=== PATIENT | male | born 1960 | race Caucasian/White ===

== ENCOUNTER → 2017-12-15 | Outpatient (CLI) | payer BC ==
--- NOTE | 2017-12-15 22:39 | MR ---
EXAMINATION TYPE: MR lumbar spine wo con DATE OF EXAM: 12/15/2017 COMPARISON: NONE HISTORY: Lumbosacral radiculitis per order. Right hip pain for 15 years per patient. TECHNIQUE: Multiplanar, multisequence imaging of the lumbar spine is performed without IV contrast. FINDINGS: Sagittal images of the lumbar spine show vertebral body heights and alignment to appear sat isfactory. Multilevel disc desiccation is present. There is mild to moderate disc space narrowing L2- L3 and L4-L5 levels. Posterior disc herniations are seen at these levels as well as L3-L4 level effac ing the anterior thecal sac on sagittal images. The conus medullaris is normal in position and signal ending at mid L1 level. There are heterogeneous endplate changes with mild multilevel anterior spurr ing moderate anterior spurring at T11-T12 level is noted. Axial images show the T12-L1 and L1-L2 levels to appear within normal limits. Axial images at L2-L3 level show a large right paracentral disc extrusion component extending superio rly seen best sagittal image 9 roughly 1.4 cm above superior aspect of disc space. This is effacing t he anterolateral thecal sac and lateral recess and likely central right L2 nerve best on axial image 20 and sagittal image 9. There is moderate broad disc bulge also present effacing anterior thecal sac and causing mild to moderate bilateral anterior inferior neural foraminal narrowing. Axial images at L3-L4 level mild to moderate broad disc bulge mildly effaces the anterior thecal sac and mild facet degenerative changes bilaterally. There is [id number] bilateral anterior inferio r neural foraminal narrowing. Axial images at L4-L5 level shows broad-based posterior disc protrusion and [id number] facet de generative changes bilaterally. There is mild effacement anterior thecal sac. There is moderate to se ignacio left greater than right neural foraminal narrowing with encroachment along inferior aspect both L4 nerve roots respectively on sagittal images 12 and 3. Axial images at L5-S1 levels show [id number] facet degenerative changes bilaterally. Spinal can al is preserved. Bilateral neural foramina are patent. No suspicious retroperitoneal findings are seen. IMPRESSION: Multilevel degenerative changes lumbar spine as detailed above. Attention to L2-L3 level where most prominent disc herniation is effacing the anterolateral thecal sac and lateral recess as w ell as suspected right L2 and probable L3 nerves.
--- NOTE | 2017-12-15 22:42 | MR ---
EXAMINATION TYPE: MR hip RT wo con DATE OF EXAM: 12/15/2017 COMPARISON: NONE HISTORY: Right Hip Pain x 15 years Standard multiplanar, multisequence MRI departmental protocol Multiplanar, multisequence images of the pelvis focusing on the right hip were acquired. FINDINGS: Hip joints show symmetric mild/moderate axial joint space loss. Femoral head shapes are camille ntained bilaterally. No suspicious edema is seen in either hip or visualized pelvis. There are symmet anselmo small hip joint effusions. No linear T1 signal to suggest avascular necrosis is identified in eit her femoral head. No suspicious fluid signal seen at level of greater or lesser trochanters bilaterally. Groin adenopat hy is present. No suspicious fat or bowel-containing groin hernias is present bilaterally. There is some degenerative change superior labrum, irregularity and increased signal is suggestive of tear. Muscle bulk in the bilateral phthisis symmetrically and felt within normal limits. Visualized bladder is unremarkable. There is no suspicious bowel dilatation. There is no concerning p elvic fluid collection. Prostate is normal in size. IMPRESSION: Mild to moderate degenerative changes of both hips. Probable right-sided labral tear noted.
== END | disposition home or self-care (01) ==
LOC: RADMRIMAIN 19:14
PROVIDERS: ATTEND Family Medicine
DX: M51.16 Intervertebral disc disorders with radiculopathy, lumbar region (principal); M47.27 Other spondylosis with radiculopathy, lumbosacral region; R93.7 Abnormal findings on diagnostic imaging of other parts of musculoskeletal system; M25.551 Pain in right hip
CPT/HCPCS: 72148

== ENCOUNTER 2020-08-02 16:53 | Emergency (ER) | payer BC ==
[2020-08-02 17:01] VITALS: BP 150/87; PULSE 92; RESP 20; TEMP 98.6
[2020-08-02] MEDS ORDERED: IBUPROFEN 600 MG TAB PO STA (17:16)
[2020-08-02] MEDS ORDERED: DIPH,PERTUS(ACELL)TETVAC-LF 0.5 ML VIAL IM ONE (17:41)
[2020-08-02 17:47] LABS: Appearance,Urine Clear (Clear); Bilirubin,Urine Negative (Negative); Blood,Urine Negative (Negative); Color,Urine Yellow; Glucose,Urine (UA) Negative (Negative); Ketones,Urine Trace (Negative); Leukocyte Esterase,Urine Negative (Negative); Nitrite,Urine Negative (Negative); Protein,Urine Trace (Negative); Specific Gravity,Urine 1.029 (1.001-1.035)
--- NOTE | 2020-08-02 17:54 | XR ---
EXAMINATION TYPE: XR ribs LT w pa chest xray DATE OF EXAM: 08/02/2020 COMPARISON: NONE HISTORY: Pain. Fall. TECHNIQUE: 5 views FINDINGS: Heart is normal. Lungs are clear of infiltrate. There is no pleural effusion or pneumothora x. There are fractures of the anterior left 11th rib in the posterior lateral left 10th rib. There is no displacement. There are no hilar masses. Costophrenic angles are clear. IMPRESSION: Acute nondisplaced left-sided rib fractures.
[2020-08-02] MEDS ORDERED: LIDOCAINE 5% PATCH TOPICAL STA (17:56)
--- NOTE | 2020-08-02 17:58 | ED ---
Fall HPI - General Chief Complaint: Fall Stated Complaint: Fall Time Seen by Provider: 08/02/20 17:03 Source: patient Mode of arrival: ambulatory - History of Present Illness Initial Comments: 60-year-old male patient presents to the emergency department today for evaluation after experiencing a fall at home. Patient states he was about 3 rungs up a ladder when the ladder fell and he landed on top of it on his left ribs. Patient states he has been having some discomfort to the left posterior ribs since. Especially when he sits back and remains on a chair. He denies any increased pain with breathing. Denies any shortness of breath or hemoptysis. He states he did hit his head causing an abrasion as well. He denies any loss of consciousness. Denies any headache, neck pain, or spinal pain. Denies radiation of pain down his arms or his legs. Denies taking any medication for symptom relief. Patient denies any chest pain, shortness of breath, dizziness, weakness, abdominal pain, nausea, vomiting, or difficulties with bowel movements or urination. - Related Data Home Medications Medication Instructions Recorded Confirmed Aspirin 81 mg PO DAILY 06/12/14 03/04/16 Levothyroxine Sodium [Synthroid] 50 mcg PO DAILY 06/12/14 03/05/16 Losartan [Cozaar] 50 mg PO DAILY 06/12/14 03/05/16 Multivitamin [Men's Multi-Vitamin] 1 each PO DAILY 06/12/14 03/05/16 Potassium (Unknown Dose) 1 tab PO DAILY 06/12/14 03/05/16 Vitamina-(Dose Unknown) 1 cap PO DAILY 03/04/16 03/05/16 Previous Rx's Medication Instructions Recorded Ibuprofen [Motrin] 600 mg PO Q8HR PRN #30 tab 08/02/20 Lidocaine 5% Patch [Lidoderm] 1 patch TOPICAL DAILY #30 patch 08/02/20 Allergies Allergy/AdvReac Type Severity Reaction Status Date / Time Penicillins Allergy Rash/Hives Verified 08/02/20 17:02 Review of Systems ROS Statement: Those systems with pertinent positive or pertinent negative responses have been documented in the HPI. ROS Other: All systems not noted in ROS Statement are negative. Past Medical History Past Medical History: Hypertension, Skin Disorder, Thyroid Disorder Additional Past Medical History / Comment(s): . VITILIGO. History of Any Multi-Drug Resistant Organisms: None Reported Past Surgical History: Orthopedic Surgery Additional Past Surgical History / Comment(s): ORIF RT ANKLE, LEG. BILAT CATARACT REMOVED, Past Anesthesia/Blood Transfusion Reactions: No Reported Reaction Past Psychological History: No Psychological Hx Reported Smoking Status: Never smoker Past Alcohol Use History: Occasional Past Drug Use History: None Reported - Past Family History Father Sister(s) Family Medical History: Cancer General Exam Limitations: no limitations General appearance: alert, in no apparent distress, other (Physical well- developed, well-nourished adult male patient in no acute distress. Vital signs upon presentation are temperature 98.6F, pulse 92, respirations 20, blood pressure 150/87, pulse ox 99% on room air.) Head exam: Present: other (There is superficial abrasion noted to the top of the head, no active bleeding. No bony step-off or deformity noted to palpation.) Eye exam: Present: normal appearance, PERRL, EOMI. Absent: scleral icterus, conjunctival injection, periorbital swelling ENT exam: Present: normal exam, normal oropharynx, mucous membranes moist Neck exam: Present: normal inspection, full ROM, other (Nontender, no step-off, no deformity to firm midline palpation of the posterior cervical spine. Full range of motion without pain or limitation.). Absent: tenderness, meningismus, lymphadenopathy Respiratory exam: Present: normal lung sounds bilaterally. Absent: respiratory distress, wheezes, rales, rhonchi, stridor Cardiovascular Exam: Present: regular rate, normal rhythm, normal heart sounds. Absent: systolic murmur, diastolic murmur, rubs, gallop, clicks Back exam: Present: other (There is superficial abrasion and erythema noted over the left flank and left posterior lower rib region. There is tenderness noted over this area as well.). Absent: normal inspection, vertebral tenderness (Nontender, no step-off, no deformity to firm midline palpation of the thoracic and lumbar vertebrae. Full range of motion without pain or limitation.) Neurological exam: Present: alert, oriented X3, CN II-XII intact Psychiatric exam: Present: normal affect, normal mood Skin exam: Present: warm, dry, intact, normal color. Absent: rash Course Vital Signs 08/02/20 16:57 Temperature 98.6 F Pulse Rate 92 Respiratory 20 Rate Blood Pressure 150/87 O2 Sat by Pulse 99 Oximetry Medical Decision Making - Medical Decision Making 60-year-old male patient presents to the emergency department today for evaluation of left rib pain after experiencing a fall from a ladder. Patient does report striking his head but denies any loss of consciousness, current headache, visual changes, or dizziness. No nausea or vomiting. There is left posterior rib tenderness. X-rays of the rib and chest were obtained and showed a 10th and 11th rib fracture. Urinalysis was negative for signs of blood. Patient was given Lidoderm patch, anti-inflammatory pain medication. He is also given incentive spirometer with instructions on use to prevent pneumonia. He is instructed to follow-up with his primary care physician for recheck in 1-2 days. We did discuss signs or symptoms of worsening head injury. Return parameters were discussed in detail. He verbalizes understanding and agrees with this plan. - Lab Data Lab Results 08/02/20 Range/Units 17:40 Urine Color Yellow Urine Appearance Clear (Clear) Urine pH 5.0 (5.0-8.0) Ur Specific Gary 1.029 (1.001-1.035) Urine Protein Trace H (Negative) Urine Glucose (UA) Negative (Negative) Urine Ketones Trace H (Negative) Urine Blood Negative (Negative) Urine Nitrite Negative (Negative) Urine Bilirubin Negative (Negative) Urine Urobilinogen 2.0 (<2.0) mg/dL Ur Leukocyte Esterase Negative (Negative) - Radiology Data Radiology results: report reviewed, image reviewed 5 views of the left ribs and chest are obtained. Report was reviewed in its entirety. Impression by Dr. Able shows acute nondisplaced left-sided rib fractures over the lateral 10th and 11th rib. Disposition Clinical Impression: Left rib fracture Disposition: HOME SELF-CARE Condition: Good Instructions (If sedation given, give patient instructions): Rib Fracture (ED) Additional Instructions: Apply ice to the left ribs. Take medications as directed. Follow up with the primary care physician for recheck in 1-2 days. Return to the emergency department for any new, worsening, or concerning symptoms. Prescriptions: Lidocaine 5% Patch [Lidoderm] 1 patch TOPICAL DAILY #30 patch Ibuprofen [Motrin] 600 mg PO Q8HR PRN #30 tab PRN Reason: Pain Is patient prescribed a controlled substance at d/c from ED?: No Referrals: Micheal Yusuf, [Primary Care Provider] - 1-2 days Time of Disposition: 18:28
== END 2020-08-02 18:47 | disposition home or self-care (01) ==
LOC: EC 16:53
DX: S22.32XA Fracture of one rib, left side, initial encounter for closed fracture (principal); S00.91XA Abrasion of unspecified part of head, initial encounter; Z23 Encounter for immunization; E07.9 Disorder of thyroid, unspecified; I10 Essential (primary) hypertension; Z79.890 Hormone replacement therapy; Z79.899 Other long term (current) drug therapy; Z88.0 Allergy status to penicillin; Z98.42 Cataract extraction status, left eye; Z98.41 Cataract extraction status, right eye; W11.XXXA Fall on and from ladder, initial encounter; Y93.89 Activity, other specified; Y92.009 Unspecified place in unspecified non-institutional (private) residence as the place of occurrence of the external cause
CPT/HCPCS: 81003; 90471; 90715; 99284

== ENCOUNTER 2020-08-08 12:05 | Observation (INO) | payer BC ==
[2020-08-08] MEDS ORDERED: MORPHINE SULFATE 4 MG/ML SYRINGE IM STA (12:32)
[2020-08-08] MEDS ORDERED: DIAZEPAM 5 MG/ML 2 ML INJ IM ONE (12:32)
--- NOTE | 2020-08-08 12:33 | ED ---
Back Pain HPI - General Source: patient, RN notes reviewed, old records reviewed Limitations: no limitations <Carol Yoder - Last Filed: 08/08/20 15:51> <Martha Low - Last Filed: 08/14/20 00:35> - General Chief Complaint: Back Pain/Injury Stated Complaint: Revisit - Rib Pain sent by pcp Time Seen by Provider: 08/08/20 12:20 - History of Present Illness Initial Comments: 60-year-old male presents emergency department today for evaluation with complaints of left-sided rib pain. Patient reports that he fell on Wednesday was seen at that time diagnosed with rib fractures on 07 28. She reports that he fell on top of the ladder after standing on 3 steps and landed on the ribs. Patient reports he followed up with his PCP who prescribed him muscle relaxers and Tylenol codeine and continues to have significant worsening pain.. Patient reports that his pain was not managed with these medications at home last night. He reports that his back seems to spasm up. He denies any change in urination or hematuria. (Carol Yoder) - Related Data Home Medications Medication Instructions Recorded Confirmed Losartan [Cozaar] 50 mg PO DAILY 06/12/14 08/08/20 Levothyroxine Sodium [Synthroid] 75 mcg PO DAILY 08/08/20 08/08/20 Previous Rx's Medication Instructions Recorded Cyclobenzaprine [Flexeril] 10 mg PO TID PRN #30 tab 08/09/20 Naproxen [Naprosyn] 250 mg PO TID #30 tab 08/09/20 Allergies Allergy/AdvReac Type Severity Reaction Status Date / Time Penicillins Allergy Rash/Hives Verified 08/08/20 17:41 Review of Systems ROS Other: All systems not noted in ROS Statement are negative. <Carol Ydoer - Last Filed: 08/08/20 15:51> ROS Other: All systems not noted in ROS Statement are negative. <Martha Low - Last Filed: 08/14/20 00:35> ROS Statement: Those systems with pertinent positive or pertinent negative responses have been documented in the HPI. Past Medical History Past Medical History: Hypertension, Skin Disorder, Thyroid Disorder Additional Past Medical History / Comment(s): . VITILIGO. History of Any Multi-Drug Resistant Organisms: None Reported Past Surgical History: Orthopedic Surgery Additional Past Surgical History / Comment(s): ORIF RT ANKLE, LEG. BILAT CATARACT REMOVED, Past Anesthesia/Blood Transfusion Reactions: No Reported Reaction Past Psychological History: No Psychological Hx Reported Smoking Status: Never smoker Past Alcohol Use History: Occasional Past Drug Use History: None Reported - Past Family History Father Sister(s) Family Medical History: Cancer <Carol Yoder - Last Filed: 08/08/20 15:51> General Exam Limitations: no limitations General appearance: alert, in no apparent distress Head exam: Present: atraumatic, normocephalic, normal inspection Eye exam: Present: normal appearance, PERRL, EOMI. Absent: scleral icterus, conjunctival injection, periorbital swelling ENT exam: Present: normal exam, mucous membranes moist Neck exam: Present: normal inspection. Absent: tenderness, meningismus, lymphadenopathy Respiratory exam: Present: decreased breath sounds, other (Patient has sign ificant). Absent: respiratory distress, wheezes, rales, rhonchi, stridor Cardiovascular Exam: Present: regular rate, normal rhythm, normal heart sounds. Absent: systolic murmur, diastolic murmur, rubs, gallop, clicks GI/Abdominal exam: Present: soft Extremities exam: Present: normal inspection, full ROM, normal capillary refill. Absent: tenderness, pedal edema, joint swelling, calf tenderness Back exam: Present: normal inspection, other (Patient has tenderness of her left rib space) Neurological exam: Present: alert, oriented X3, CN II-XII intact Psychiatric exam: Present: normal affect, normal mood Skin exam: Present: warm, dry, intact, normal color. Absent: rash <Carol Yoder - Last Filed: 08/08/20 15:51> - General Exam Comments Initial Comments: 60-year-old male. Alert and oriented 3. Patient appears in moderate discomfort. (Carol Yoder) Course Vital Signs 08/08/20 08/08/20 08/08/20 12:08 14:00 16:00 Temperature 97.7 F 97.9 F Pulse Rate 82 71 75 Pulse Rate [ City Recorder ] Respiratory 18 18 18 Rate Blood Pressure 162/79 129/70 136/74 Blood Pressure [Left Arm] O2 Sat by Pulse 98 94 L 94 L Oximetry 08/08/20 08/08/20 17:49 18:10 Temperature 98 F 98.0 F Pulse Rate 69 Pulse Rate [ 81 City Recorder ] Respiratory 18 18 Rate Blood Pressure 134/74 Blood Pressure 157/88 [Left Arm] O2 Sat by Pulse 98 94 L Oximetry Medical Decision Making - Lab Data Result diagrams: 08/08/20 13:53 08/08/20 13:53 - Radiology Data Radiology results: report reviewed <Carol Yoder - Last Filed: 08/08/20 15:51> - Lab Data Result diagrams: 08/08/20 13:53 08/08/20 13:53 <Martha Low - Last Filed: 08/14/20 00:35> - Medical Decision Making This is a 60-year-old male presented to the ER today for evaluation for worsening left rib pain. He fell off of the ladder was standing on 3 steps and landed on top of the ladder on Wednesday. He is diagnosed with 07 28 refracture. Patient's chest x-ray today shows evidence of pleural fusion. Patient had labwork obtained, was given further pain medication. He has evidence of rib fractures on through . He has evidence of a left pleural effusion subsegmental atelectasis. There is collapse of the left basilar lobe. Patient informed of these results. Discussed he will need to be admitted with consult pulmonology. Patient understands admission and treatment plan. (Carol Yoder) I was available for consultation in the emergency department. The history and physical exam were done by the midlevel provider. I was consulted for this patients care. I reviewed the case with the midlevel provider and based on their presentation of the patient, I agree with the assessment, medical decision making and plan of care as documented. Chart was dictated using [employer] dictation software. Attempts were made to correct any dictation errors however some typographical errors may persist. Patient was seen during a national state of emergency due to the Covid-19 pand emic. (Martha Low) - Lab Data Lab Results 08/08/20 08/08/20 08/08/20 Range/Units 13:53 13:53 13:53 WBC 8.3 (3.8-10.6) k/uL RBC 4.26 L (4.30-5.90) m/uL Hgb 13.6 (13.0-17.5) gm/dL Hct 41.0 (39.0-53.0) % MCV 96.4 (80.0-100.0) fL MCH 32.1 (25.0-35.0) pg MCHC 33.3 (31.0-37.0) g/dL RDW 12.9 (11.5-15.5) % Plt Count 223 (150-450) k/uL Neutrophils % 76 % Lymphocytes % 12 % Monocytes % 7 % Eosinophils % 2 % Basophils % 1 % Neutrophils # 6.4 (1.3-7.7) k/uL Lymphocytes # 1.0 (1.0-4.8) k/uL Monocytes # 0.6 (0-1.0) k/uL Eosinophils # 0.2 (0-0.7) k/uL Basophils # 0.1 (0-0.2) k/uL PT (9.0-12.0) sec INR (<1.2) APTT (22.0-30.0) sec Sodium 138 (137-145) mmol/L Potassium 4.6 (3.5-5.1) mmol/L Chloride 103 (98-107) mmol/L Carbon Dioxide 30 (22-30) mmol/L Anion Gap 5 mmol/L BUN 36 H (9-20) mg/dL Creatinine 1.10 (0.66-1.25) mg/dL Est GFR (CKD-EPI)AfAm 85 (>60 ml/min/1.73 sqM) Est GFR (CKD-EPI)NonAf 73 (>60 ml/min/1.73 sqM) Glucose 91 (74-99) mg/dL Calcium 9.5 (8.4-10.2) mg/dL Total Bilirubin 1.7 H (0.2-1.3) mg/dL AST 22 (17-59) U/L ALT 26 (4-49) U/L Alkaline Phosphatase 88 (38-126) U/L Troponin I (0.000-0.034) ng/mL NT-Pro-B Natriuret Pep 25 pg/mL Total Protein 6.6 (6.3-8.2) g/dL Albumin 4.0 (3.5-5.0) g/dL 08/08/20 08/08/20 Range/Units 14:18 14:18 WBC (3.8-10.6) k/uL RBC (4.30-5.90) m/uL Hgb (13.0-17.5) gm/dL Hct (39.0-53.0) % MCV (80.0-100.0) fL MCH (25.0-35.0) pg MCHC (31.0-37.0) g/dL RDW (11.5-15.5) % Plt Count (150-450) k/uL Neutrophils % % Lymphocytes % % Monocytes % % Eosinophils % % Basophils % % Neutrophils # (1.3-7.7) k/uL Lymphocytes # (1.0-4.8) k/uL Monocytes # (0-1.0) k/uL Eosinophils # (0-0.7) k/uL Basophils # (0-0.2) k/uL PT 9.6 (9.0-12.0) sec INR 0.9 (<1.2) APTT 21.7 L (22.0-30.0) sec Sodium (137-145) mmol/L Potassium (3.5-5.1) mmol/L Chloride (98-107) mmol/L Carbon Dioxide (22-30) mmol/L Anion Gap mmol/L BUN (9-20) mg/dL Creatinine (0.66-1.25) mg/dL Est GFR (CKD-EPI)AfAm (>60 ml/min/1.73 sqM) Est GFR (CKD-EPI)NonAf (>60 ml/min/1.73 sqM) Glucose (74-99) mg/dL Calcium (8.4-10.2) mg/dL Total Bilirubin (0.2-1.3) mg/dL AST (17-59) U/L ALT (4-49) U/L Alkaline Phosphatase (38-126) U/L Troponin I <0.012 (0.000-0.034) ng/mL NT-Pro-B Natriuret Pep pg/mL Total Protein (6.3-8.2) g/dL Albumin (3.5-5.0) g/dL - Radiology Data Chest x-ray shows new small bilateral pleural effusions and associated bibasilar atelectasis and/or infiltrate. Fractures of ninth 10th 11th and 12th ribs. 11th rib fractures segmental with more medial fracture at level of the costophrenic transverse junction. Associated left pleural effusion. Collapse of the left basilar lower lobe and multifocal subsegmental atelectasis of the basilar right lower lobe. (Carol Yoder) Disposition Is patient prescribed a controlled substance at d/c from ED?: No Time of Disposition: 15:55 <Carol Yoder - Last Filed: 08/08/20 15:51> <Martha Low - Last Filed: 08/14/20 00:35> Clinical Impression: Multiple rib fractures, Pleural effusion Disposition: ADMITTED IP TO THIS HOSP Condition: Stable
--- NOTE | 2020-08-08 13:32 | XR ---
EXAMINATION TYPE: XR chest 2V DATE OF EXAM: 08/08/2020 COMPARISON: Chest x-ray August 02, 2020 HISTORY: Tachycardia. TECHNIQUE: Frontal and lateral views of the chest are obtained. FINDINGS: There is left greater than right bibasilar opacities new from prior. The cardiac silhouet te size is stable and upper limits of normal. The osseous structures are intact. IMPRESSION: New small bilateral pleural effusions and associated bibasilar acute atelectasis and/or infiltrate.
[2020-08-08] MEDS ORDERED: RX INFO: IV CONTRAST WAS GIVEN 1 EACH MISC MISCELLANE PRN (14:12)
[2020-08-08 14:14] LABS: Basophils # (A) 0.1 k/uL (0-0.2); Basophils % (A) 1 %; Eosinophils # (A) 0.2 k/uL (0-0.7); Eosinophils % (A) 2 %; HGB 13.6 gm/dL (13.0-17.5); Lymphocytes % (A) 12 %; MCH 32.1 pg (25.0-35.0); MCHC 33.3 g/dL (31.0-37.0); MCV 96.4 fL (80.0-100.0); Monocytes # (A) 0.6 k/uL (0-1.0); Monocytes % (A) 7 %; Neutrophils # (A) 6.4 k/uL (1.3-7.7); Neutrophils % (A) 76 %; Platelet Count 223 k/uL (150-450); RBC 4.26 m/uL (4.30-5.90); RDW 12.9 % (11.5-15.5); WBC 8.3 k/uL (3.8-10.6)
[2020-08-08 14:28] LABS: Calcium 9.5 mg/dL (8.4-10.2); Potassium 4.6 mmol/L (3.5-5.1); Total Bilirubin 1.7 mg/dL (0.2-1.3); Total Protein 6.6 g/dL (6.3-8.2)
[2020-08-08 14:57] LABS: INR 0.9 (<1.2); Prothrombin Time 9.6 sec (9.0-12.0)
[2020-08-08] MEDS: SODIUM CHLORIDE 0.9% 1,000 ML IV SCH (14:57)
[2020-08-08 14:59] LABS: Partial Thromboplastin Time 21.7 sec (22.0-30.0)
--- NOTE | 2020-08-08 15:15 | CT ---
EXAMINATION TYPE: CT chest abdomen w con DATE OF EXAM: 08/08/2020 COMPARISON: Radiographs 08/08/2020 HISTORY: 60-year-old male Back pain. Head to the left side of the ribs about a week ago. Severe pain to the lower lateral left ribs. TECHNIQUE: Contiguous axial scanning of the chest and abdomen following administration of 100 ml Isov ue 300 IV contrast. Delayed images through the kidneys and coronal/sagittal reconstructions performe d. CT DLP: 560.5 mGycm Automated exposure control for dose reduction was used. FINDINGS: CHEST: Heart borderline in size without pericardial effusion. Scattered three-vessel coronary artery calcifi cations are present. Aorta normal caliber with conventional arch vessel branching anatomy. No thoracic lymphadenopathy by CT size criteria. There is a small left pleural effusion. Basilar left lower lobe atelectatic collapse. Multi subsegmen jimmy atelectasis basilar right lower lobe. No pneumothorax. ABDOMEN: Small hiatal hernia. The abdomen shows liver borderline enlarged at 17.6 cm. The mottled enhancement of the spleen compati ble with arterial phase imaging. Spleen is upper limits of normal in size at 13.4 cm. No clear focal injury identified. Gallbladder, adrenal glands, kidneys, and pancreas appear within normal limits. No dilated small bowel, free fluid, free air. Mild stool burden. Left-sided colonic diverticulosis wi thout pericolic inflammatory change. BONES: Nondisplaced to minimally displaced fractures of the left posterolateral ninth, 10th, and 11th fractu res. The 11th rib fracture is segmental with an additional medial fracture at the level of the costal transverse junction. Additional nondisplaced fracture proximal 12th rib. Mild degenerative disc disease lower thoracic spine. IMPRESSION: 1. FRACTURES OF THE LEFT NINTH, 10TH, 11TH, AND 12TH RIBS. THE 11TH RIB FRACTURE IS SEGMENTAL WITH A MORE MEDIAL FRACTURE AT THE LEVEL OF THE COSTOTRANSVERSE JUNCTION. 2. ASSOCIATED SMALL LEFT PLEURAL EFFUSION. COLLAPSE OF THE BASILAR LEFT LOWER LOBE AND MULTIFOCAL SUB SEGMENTAL ATELECTASIS OF THE BASILAR RIGHT LOWER LOBE.
[2020-08-08] MEDS ORDERED: IBUPROFEN 400 MG TAB PO PRN (15:56)
[2020-08-08] MEDS ORDERED: KETOROLAC 15 MG/ML 1 ML VIAL IVP PRN (15:56)
[2020-08-08] MEDS ORDERED: NALOXONE 0.4 MG/ML 1 ML VIAL IV PRN (15:56)
[2020-08-08] MEDS ORDERED: ONDANSETRON 4 MG/2 ML VIAL IVP PRN (15:56)
[2020-08-08] MEDS: MORPHINE SULFATE 4 MG/ML SYRINGE IV PRN (18:09)
[2020-08-09] MEDS: SODIUM CHLORIDE 0.9% 1,000 ML IV SCH ×2 (01:27→10:28)
[2020-08-09] MEDS: MORPHINE SULFATE 4 MG/ML SYRINGE IV PRN ×3 (03:37→14:41)
[2020-08-09] MEDS ORDERED: LEVOTHYROXINE 50 MCG TAB PO SCH (06:30)
[2020-08-09] MEDS ORDERED: LIDOCAINE 5% PATCH TOPICAL SCH (09:00)
[2020-08-09] MEDS ORDERED: MULTIVITAMINS, THERA 1 EACH TAB PO SCH (09:00)
[2020-08-09] MEDS ORDERED: LOSARTAN 50 MG TAB PO SCH (09:00)
--- NOTE | 2020-08-09 09:35 | P.GSCN ---
<Cira Mann - Last Filed: 08/09/20 09:25> History of Present Illness Consult date: 08/09/20 History of present illness: CHIEF COMPLAINT: Left-sided rib pain HISTORY OF PRESENT ILLNESS: This is a 60-year-old male with a known history of hypertension and hypothyroidism. Last Wednesday patient patient was up on a ladder caulking his outside windows. He Was 3steps up on the ladder when the ladder fell to the side and patient landed on the ladder injuring the left side of his ribs. He had come in to the emergency room was found to have 10th and 11th left rib fracture. He was given pain medication. Patient reports that the pain did not improve over the last week. He is also having difficulty taking in a deep breath. He came back into the Emergency room because his pain was uncontrolled. Patient had computed tomography scan of the chest abdomen pelvis showing Fracture of the left ninth, 10th 11th and 12th ribs. mall left pleural effusion. Collapse of the basilar left lower lobe and multifocal subsegmental atelectasis of the basilar right lower lobe. Patient reports his pain is slightly better today with the IV pain medication but still not fully controlled. He denies any fever, chills or sweats. Denies any nausea or vomiting. He reports having regular bowel movements. He denies any abdominal pain. Denies any difficulty urinating. PAST MEDICAL HISTORY: See list. PAST SURGICAL HISTORY: See list. MEDICATIONS: See list. ALLERGIES: See list. SOCIAL HISTORY: No illicit drug use. REVIEW OF SYSTEMS: CONSTITUTIONAL: Denies fever or chills. HEENT: Denies blurred vision, vision changes, or eye pain. Denies hemoptysis CARDIOVASCULAR: Denies chest pain or pressure. RESPIRATORY: No shortness of breath. GASTROINTESTINAL: See HPI for pertinent findings HEMATOLOGIC: Denies bleeding disorders. GENITOURINARY: Denies any blood in urine or increased urinary frequency. SKIN: Denies pruitis. Denies rash. PHYSICAL EXAM: VITAL SIGNS: Reviewed GENERAL: Well-developed in no acute distress. HEENT: No sclera icterus. Extraocular movements grossly intact. Moist buccal mucosa. Head is atraumatic, normocephalic. No nasal drainage. ABDOMEN: Soft. Nondistended. Nondistended NEUROLOGIC: Alert and oriented. Cranial nerves II through XII grossly intact. LABORATORY DATA: WBC 8.3 hemoglobin 13.6 IMAGING: computed tomography scan of the chest abdomen pelvis showing Fracture of the left ninth, 10th 11th and 12th ribs. mall left pleural effusion. Collapse of the basilar left lower lobe and multifocal subsegmental atelectasis of the basilar right lower lobe. ASSESSMENT: 1. Fall from ladder with left-sided rib fractures of the ninth, 10, 11 and 12th ribs 2. Collapse of the left basilar lower lobe of the lung noted on computed tomography scan 3. Atelectasis 4. Hypertension PLAN: -Pain control per anesthesia -Await further recommendations per pulmonary service -Continue incentive spirometer use -continue regular diet Thank you for this consultation Physician Station Mechanic Helper note has been reviewed by physician. Signing provider agrees with the documented findings, assessment, and plan of care. Past Medical History Past Medical History: Hypertension, Skin Disorder, Thyroid Disorder Additional Past Medical History / Comment(s): . VITILIGO. History of Any Multi-Drug Resistant Organisms: None Reported Past Surgical History: Orthopedic Surgery Additional Past Surgical History / Comment(s): ORIF RT ANKLE, LEG. BILAT CATARACT REMOVED, Past Anesthesia/Blood Transfusion Reactions: No Reported Reaction Past Psychological History: No Psychological Hx Reported Smoking Status: Never smoker Past Alcohol Use History: Occasional Past Drug Use History: None Reported - Past Family History Father Sister(s) Family Medical History: Cancer Medications and Allergies Home Medications Medication Instructions Recorded Confirmed Type Losartan [Cozaar] 50 mg PO DAILY 06/12/14 08/08/20 History Cyclobenzaprine [Flexeril] 10 mg PO TID PRN 08/08/20 08/08/20 History Levothyroxine Sodium [Synthroid] 75 mcg PO DAILY 08/08/20 08/08/20 History Allergies Allergy/AdvReac Type Severity Reaction Status Date / Time Penicillins Allergy Rash/Hives Verified 08/08/20 17:41 Surgical - Exam Vital Signs Temp Pulse Resp BP Pulse Ox 97.7 F 82 18 162/79 98 08/08/20 12:08 08/08/20 12:08 08/08/20 12:08 08/08/20 12:08 08/08/20 12:08 Results - Labs 08/08/20 13:53 08/08/20 13:53 Abnormal Lab Results - Last 24 Hours (Table) 08/08/20 08/08/20 08/08/20 Range/Units 13:53 13:53 14:18 RBC 4.26 L (4.30-5.90) m/uL APTT 21.7 L (22.0-30.0) sec BUN 36 H (9-20) mg/dL Total Bilirubin 1.7 H (0.2-1.3) mg/dL Diabetes panel 08/08/20 Range/Units 13:53 Sodium 138 (137-145) mmol/L Potassium 4.6 (3.5-5.1) mmol/L Chloride 103 (98-107) mmol/L Carbon Dioxide 30 (22-30) mmol/L BUN 36 H (9-20) mg/dL Creatinine 1.10 (0.66-1.25) mg/dL Glucose 91 (74-99) mg/dL Calcium 9.5 (8.4-10.2) mg/dL AST 22 (17-59) U/L ALT 26 (4-49) U/L Alkaline Phosphatase 88 (38-126) U/L Total Protein 6.6 (6.3-8.2) g/dL Albumin 4.0 (3.5-5.0) g/dL Calcium panel 08/08/20 Range/Units 13:53 Calcium 9.5 (8.4-10.2) mg/dL Albumin 4.0 (3.5-5.0) g/dL Pituitary panel 08/08/20 Range/Units 13:53 Sodium 138 (137-145) mmol/L Potassium 4.6 (3.5-5.1) mmol/L Chloride 103 (98-107) mmol/L Carbon Dioxide 30 (22-30) mmol/L BUN 36 H (9-20) mg/dL Creatinine 1.10 (0.66-1.25) mg/dL Glucose 91 (74-99) mg/dL Calcium 9.5 (8.4-10.2) mg/dL Adrenal panel 08/08/20 Range/Units 13:53 Sodium 138 (137-145) mmol/L Potassium 4.6 (3.5-5.1) mmol/L Chloride 103 (98-107) mmol/L Carbon Dioxide 30 (22-30) mmol/L BUN 36 H (9-20) mg/dL Creatinine 1.10 (0.66-1.25) mg/dL Glucose 91 (74-99) mg/dL Calcium 9.5 (8.4-10.2) mg/dL Total Bilirubin 1.7 H (0.2-1.3) mg/dL AST 22 (17-59) U/L ALT 26 (4-49) U/L Alkaline Phosphatase 88 (38-126) U/L Total Protein 6.6 (6.3-8.2) g/dL Albumin 4.0 (3.5-5.0) g/dL <Coy Duron - Last Filed: 08/09/20 16:18> History of Present Illness History of present illness: As above. Patient with left-sided rib fractures. No evidence of underlying injury to the spleen or kidney. No evidence of pneumothorax. Some fluid on chest x-ray. We'll repeat chest films tomorrow to evaluate size effusion. Continue pulmonary toilet. Will follow. Surgical - Exam Vital Signs Temp Pulse Resp BP Pulse Ox 97.7 F 82 18 162/79 98 08/08/20 12:08 08/08/20 12:08 08/08/20 12:08 08/08/20 12:08 08/08/20 12:08 Results - Labs 08/08/20 13:53 08/08/20 13:53
--- NOTE | 2020-08-09 09:36 | CONS ---
CONSULTATION PULMONARY/CRITICAL CARE CONSULTATION: 08/09/2020 REASON FOR CONSULTATION: Left rib fractures and small hemothorax. This is a very pleasant 60-year-old gentleman who sees Dr. Yusuf. He apparently has a history of hypertension and hypothyroidism. He apparently was up on a ladder, a 3- step ladder last Wednesday and fell. He was caulking a window. He apparently came to the emergency room. Subsequent to that and had some x-rays and was discharged home with a couple of rib fractures. He was given an incentive spirometer and pain medication. The pain really did not get any better and it actually got worse and he came back into the emergency room on August 08, where he was further evaluated with another chest x- ray and a CAT scan which showed rib fractures 9, 10, 11, 12 on the left, basilar atelectasis on the left and a small left hemothorax. He probably also has a small pulmonary contusion on that side. Currently, his major issue is inability to take a deep breath. He states it is quite painful when he takes a deep breath. This is consistent with his injury. CURRENT MEDICATIONS: Include aspirin, levothyroxine, losartan, multivitamins, potassium, vitamins, Motrin, and Lidoderm patch. ALLERGIES: PENICILLIN. MEDICAL HISTORY: Hypothyroidism, vitiligo, hypertension. SURGICAL HISTORY: Includes ORIF, right ankle, bilateral cataract surgery, and some leg surgery. SOCIAL HISTORY: Negative tobacco use. Drinks occasionally. No illicit drug use. FAMILY HISTORY: Positive for sister with cancer. REVIEW OF SYSTEMS: CONSTITUTIONAL: Negative. NEUROLOGIC: Negative. HEENT: Negative. CARDIOVASCULAR: Negative. PULMONARY: Shortness of breath on deep breathing, pain in the left chest. GI: Negative. : Negative. RHEUMATOLOGIC: Negative. IMMUNOLOGIC: Negative. ENDOCRINOLOGIC: Negative. DERMATOLOGIC: Negative. MUSCULOSKELETAL: Left-sided chest pain from the recent injury and fall. Current vital signs are reviewed. Temperature 97.9, heart rate 70, respiratory rate 20, blood pressure 132/71 mean 91. Room air saturation 92%. Appears in no acute distress. No respiratory distress. No audible wheezing. No use of accessory muscles or conversational dyspnea. HEENT: Examination is grossly unremarkable. NECK: Supple. CARDIOVASCULAR: Examination reveals regular rhythm and rate. S1, S2 normal. No S3, S4, or murmur. LUNGS: Reveal diminished breath sounds throughout. He is not taking deep breaths. A few scattered rhonchi on the left. No wheezes or crackles. ABDOMEN: Soft. EXTREMITIES: Intact. No cyanosis, clubbing, or edema. SKIN: Without rash. NEUROLOGIC: Examination is brief but nonfocal. LAB DATA: Reviewed. White count 8.3, hemoglobin 13.6, hematocrit 41.0, platelet count 123,000, PT, INR, PTT normal. Sodium 138, potassium 4.6, chloride 103, CO2 is 30, anion gap is 5. BUN and creatinine were 36 and 1.10. The rest of the CMP which is normal. Bilirubin is a bit elevated at 1.7. CHEST X-RAY: From August 08 shows new small bilateral effusions and some left-sided basilar atelectasis. CT scan from 08/08 showed fractures of ninth, tenth, eleventh and twelfth ribs. There is also a more medial fracture at the level of the possible transverse junction on the eleventh rib. There is a small left-sided pleural effusion and collapse of the base of the left lower lobe and multi-focal subsegmental atelectasis of the basilar right lower lobe. CURRENT MEDICATIONS: Reviewed. He is on ibuprofen, Toradol, levothyroxine, Lidoderm patch, losartan, morphine sulfate, multivitamins, Narcan, Zofran, and saline IV. ASSESSMENT: 1. Status post fall 1 week ago with left chest trauma including rib fractures 9, 10, 11, 12, left basilar atelectasis, left hemothorax and probable left sided pulmonary contusion. 2. History of hypertension. 3. History of hypothyroidism. 4. History of vitiligo. PLAN: The patient is doing reasonably well. If he can be adequately controlled with pain medication. As an outpatient, the patient could be discharged home. If he is discharged home, he should go home with the incentive spirometer. I would like to see him in the office next week. He will need a followup chest x-ray. The biggest issue will be pain control. Obviously when he was discharged home on his first visit to the emergency room was not enough to control the pain. Additional recommendations and suggestions are forthcoming. Followup x-ray should be done. No additional recommendations are made. Alternatively, the patient could be kept inpatient for one more day with a followup chest x-ray in the morning. MMODL / IJN: [id number] /
[2020-08-09] MEDS ORDERED: CYCLOBENZAPRINE 10 MG TAB PO PRN (10:08)
[2020-08-09 10:17] VITALS: RESP 16; TEMP 98.1
[2020-08-09 14:36] VITALS: BP 144/79; PULSE 78
--- NOTE | 2020-08-09 20:00 | P.HPIM ---
History of Present Illness H&P Date: 08/09/20 Chief Complaint: Chest pain History of presenting complaint: This is a 60-year-old patient of Dr. Yusuf. Chronic stable medical conditions include hypertension, vitiligo, hypothyroid. One week ago patient was on a ladder and fell about 4 steps. Landing on his left side. W fracture of the ribs. Had come down to the ER on August 02. X-rays were done. She will disch arged home on pain medications. Patient now presents with increasing pain on the left chest wall. Much worse. He has to sit up asleep. No cough no fever no chills. Pain is the main issue. Computed tomography scan discomfort fracture of the left ninth and 11th and 12th ribs. Also collapse of basilar left lower lobe and atelectasis of the right lower lobe. Review of systems: GEN.: None EYES: None HEENT: None NECK: None RESPIRATORY: As above CARDIOVASCULAR: None GASTROINTESTINAL: None GENITOURINARY: None MUSCULOSKELETAL: None LYMPHATICS: None HEMATOLOGICAL: None PSYCHIATRY: None NEUROLOGICAL: None Past medical history to include: Hypertension, vitiligo, hypothyroid Social history: Does not smoke. Alcohol occasional. . Employed. Physical examination: VITAL SIGNS: 97.7, 82, 18, 1 29 x 70, 98% on room air-upon presentation GENERAL: BMI 31.5 sitting up on a distress. EYES: Pupils equal. Conjunctiva normal. HEENT: External appearance of nose and ears normal, oral cavity grossly normal. NECK: JVD not raised; masses not palpable. HEART: First and second heart sounds are normal; no edema. LUNGS: Respiratory rate normal; decreased breath sounds on the left side. ABDOMEN: Soft, nontender, liver spleen not palpable, no masses palpable. PSYCH: Alert and oriented x3; mood and affect normal DERMATOLOGICAL: Vitiligo CHEST wall: Tenderness on the left chest wall lower side. NEUROLOGICAL: Cranial nerves grossly intact; no facial asymmetry, power and sensation grossly intact. LYMPHATICS: No lymph nodes palpable in the axilla and neck INVESTIGATIONS, reviewed in the clinical context: White count 8.3 hemoglobin 13.6 platelets 223 potassium 4.6 creatinine 1.10 Troponin I less than 0.012 EKG tracing personally reviewed by me-sinus rhythm with incomplete right bundle- branch block Chest x-ray film personally reviewed by me-pleural effusion with atelectasis Computed tomography scan of the chest-fracture of the 19th 11th and 12th ribs. Small pleural effusion and collapse of the basilar left lower lobe and multifocal atelectasis on the right side. Assessment: -Pain due to fracture of the ribs on the left lateral chest wall that a current week ago. -Fracture of the left 9/10 11/12 ribs secondary to fall-no week ago -Vitiligo -Essential hypertension -Hypothyroid -Left lower lobe basal segment collapse -Small pleural effusion could be small hemothorax Plan: Pain control was put in place. Home medications resumed. Consultation is made to trauma and pulmonary. Incentive spirometry was ordered. Past Medical History Past Medical History: Hypertension, Skin Disorder, Thyroid Disorder Additional Past Medical History / Comment(s): . VITILIGO. History of Any Multi-Drug Resistant Organisms: None Reported Past Surgical History: Orthopedic Surgery Additional Past Surgical History / Comment(s): ORIF RT ANKLE, LEG. BILAT CATARACT REMOVED, Past Anesthesia/Blood Transfusion Reactions: No Reported Reaction Past Psychological History: No Psychological Hx Reported Smoking Status: Never smoker Past Alcohol Use History: Occasional Past Drug Use History: None Reported - Past Family History Father Sister(s) Family Medical History: Cancer Medications and Allergies Home Medications Medication Instructions Recorded Confirmed Type Losartan [Cozaar] 50 mg PO DAILY 06/12/14 08/08/20 History Levothyroxine Sodium [Synthroid] 75 mcg PO DAILY 08/08/20 08/08/20 History Cyclobenzaprine [Flexeril] 10 mg PO TID PRN #30 tab 08/09/20 Rx Naproxen [Naprosyn] 250 mg PO TID #30 tab 08/09/20 Rx Allergies Allergy/AdvReac Type Severity Reaction Status Date / Time Penicillins Allergy Rash/Hives Verified 08/08/20 17:41 Physical Exam Vitals: Vital Signs Temp Pulse Pulse Resp BP BP Pulse Ox 08/09/20 03:00 97.9 F 70 20 132/71 92 L 08/08/20 19:38 98.5 F 18 147/76 91 L 08/08/20 18:10 98.0 F 69 18 134/74 94 L 08/08/20 17:49 98 F 81 18 157/88 98 08/08/20 16:00 97.9 F 75 18 136/74 94 L 08/08/20 14:00 71 18 129/70 94 L 08/08/20 12:08 97.7 F 82 18 162/79 98 Intake and Output 08/08/20 08/09/20 08/09/20 22:59 06:59 14:59 Other: Voiding Method Toilet Toilet # Voids 1 Weight 93.894 kg Results CBC & Chem 7: 08/08/20 13:53 08/08/20 13:53 Labs: Abnormal Lab Results - Last 24 Hours (Table) 08/08/20 08/08/20 08/08/20 Range/Units 13:53 13:53 14:18 RBC 4.26 L (4.30-5.90) m/uL APTT 21.7 L (22.0-30.0) sec BUN 36 H (9-20) mg/dL Total Bilirubin 1.7 H (0.2-1.3) mg/dL Thrombosis Risk Factor Assmnt - Choose All That Apply Each Factor Represents 1 point: Age 41-60 years Other Risk Factors: No Other congenital or acquired thrombophilia - If yes, enter type in comment: No Thrombosis Risk Factor Assessment Total Risk Factor Score: 1 Thrombosis Risk Factor Assessment Level: Low Risk
--- NOTE | 2020-08-09 20:03 | P.DS ---
Providers Date of admission: 08/08/20 16:13 Expected date of discharge: 08/09/20 Attending physician: Jermain Diego Consults: 08/08/20 15:56 Consult Physician Stat Consulting Provider: Ugo Parker Consult Reason/Comments: Pleural effusion, rib fx Do you want consulting provider notified?: Yes 08/08/20 16:14 Consult Physician Stat Consulting Provider: Coy Duron Consult Reason/Comments: trauma, rib fracture Do you want consulting provider notified?: Yes Consult Physician Urgent Consulting Provider: Andre Ventura Consult Reason/Comments: rib fx, pleural effusion Do you want consulting provider notified?: Yes Primary care physician: [facility] Course: Chief Complaint: Chest pain History of presenting complaint: This is a 60-year-old patient of Dr. Yusuf. Chronic stable medical conditions include hypertension, vitiligo, hypothyroid. One week ago patient was on a ladder and fell about 4 steps. Landing on his left side. W fracture of the ribs. Had come down to the ER on August 02. X-rays were done. She will discharged home on pain medications. Patient now presents with increasing pain on the left chest wall. Much worse. He has to sit up asleep. No cough no fever no chills. Pain is the main issue. Computed tomography scan discomfort fracture of the left ninth and 11th and 12th ribs. Also collapse of basilar left lower lobe and atelectasis of the right lower lobe. Patient seen by Dr. Duron from trauma. No further intervention. In by Dr. Parker from pulmonary. He will follow up as an outpatient. I put the patient on NSAIDs. Described different modalities of nonmedication pain control maneuvers. Patient is to use incentive spirometry. Patient expressed understanding. Consultation: Dr. Lewis from trauma surgery Dr. Parker from pulmonary Physical examination: VITAL SIGNS: 98.1, 78, 16, 144/79, 93% room air GENERAL: BMI 31.5 sitting up, not in distress EYES: Pupils equal. Conjunctiva normal. NECK: JVD not raised; masses not palpable. HEART: First and second heart sounds are normal; no edema. LUNGS: Respiratory rate normal; decreased breath sounds on the left side. ABDOMEN: Soft, nontender, liver spleen not palpable, no masses palpable. PSYCH: Alert and oriented x3; mood and affect normal DERMATOLOGICAL: Vitiligo CHEST wall: Tenderness on the left chest wall lower side. INVESTIGATIONS, reviewed in the clinical context: White count 8.3 hemoglobin 13.6 platelets 223 potassium 4.6 creatinine 1.10 Troponin I less than 0.012 EKG tracing personally reviewed by me-sinus rhythm with incomplete right bundle- branch block Chest x-ray film personally reviewed by me-pleural effusion with atelectasis Computed tomography scan of the chest-fracture of the 19th 11th and 12th ribs. Small pleural effusion and collapse of the basilar left lower lobe and multifocal atelectasis on the right side. Assessment: -Pain due to fracture of the ribs on the left lateral chest wall that a current week ago. -Fracture of the left 912 ribs secondary to fall-no week ago -Vitiligo -Essential hypertension -Hypothyroid -Left lower lobe basal segment collapse -Small pleural effusion could be small hemothorax Disposition: Home Patient Condition at Discharge: Stable Plan - Discharge Summary Discharge Rx Participant: No New Discharge Prescriptions: New Naproxen [Naprosyn] 250 mg PO TID #30 tab Continue Losartan [Cozaar] 50 mg PO DAILY Levothyroxine Sodium [Synthroid] 75 mcg PO DAILY Cyclobenzaprine [Flexeril] 10 mg PO TID PRN #30 tab PRN Reason: Pain Discharge Medication List Losartan [Cozaar] 50 mg PO DAILY 06/12/14 [History] Levothyroxine Sodium [Synthroid] 75 mcg PO DAILY 08/08/20 [History] Cyclobenzaprine [Flexeril] 10 mg PO TID PRN #30 tab 08/09/20 [Rx] Naproxen [Naprosyn] 250 mg PO TID #30 tab 08/09/20 [Rx] Follow up Appointment(s)/Referral(s): Micheal Yusuf DO [Primary Care Provider] - 1-2 days Ugo Parker DO [Doctor of Osteopathic Medicine] - 1 Week Patient Instructions/Handouts: Rib Fracture (DC) Discharge Disposition: HOME SELF-CARE
== END 2020-08-09 18:30 | disposition home or self-care (01) ==
LOC: EC 12:05 → 1SOBS 16:13
PROVIDERS: ADMIT Hospitalist; ATTEND Hospitalist
DX: S22.42XA Multiple fractures of ribs, left side, initial encounter for closed fracture (principal); J98.19 Other pulmonary collapse; J98.11 Atelectasis; J90 Pleural effusion, not elsewhere classified; I45.10 Unspecified right bundle-branch block; K44.9 Diaphragmatic hernia without obstruction or gangrene; K57.30 Diverticulosis of large intestine without perforation or abscess without bleeding; M51.34 Other intervertebral disc degeneration, thoracic region; E03.9 Hypothyroidism, unspecified; I10 Essential (primary) hypertension; L80 Vitiligo; Z79.890 Hormone replacement therapy; Z79.899 Other long term (current) drug therapy; Z88.0 Allergy status to penicillin; W11.XXXA Fall on and from ladder, initial encounter; Z98.42 Cataract extraction status, left eye; Z98.41 Cataract extraction status, right eye; Z80.9 Family history of malignant neoplasm, unspecified
CPT/HCPCS: 96375 ×2; 96376; 96361; 96372; 96374; 99285; 36415; 93005; 83880; 80053; 84484; 85025; 85610; 85730; 71046; 71260; 74160; G0378 ×2; J2270 ×2; J3360; J1885; Q9967

== ENCOUNTER → 2024-02-10 | Outpatient (CLI) | payer BC ==
--- NOTE | 2024-02-10 12:30 | NM ---
EXAMINATION TYPE: NM stress cardiolite complete DATE OF EXAM: 02/10/2024 COMPARISON: NONE CLINICAL INDICATION: Male, 63 years old with history of R94.31 ABNORMAL EKG; TECHNIQUE: After the intravenous administration of 9.8 mCi Tc 99m Sestamibi - Rest images obtained 4 5 minutes post injection. The patient exercised using a JESSICA protocol and 1 minute prior to peak e xercise was injected with 25.2 mCi Tc 99m Sestamibi - Stress images obtained 10 minutes post injectio n. FINDINGS: Targeted heart rate was achieved during performance of the study. Review of stress and rest SPECT martha ges demonstrates no distinct perfusion abnormality. Gated analysis shows normal wall motion with an estimated left ventricular ejection fraction of 63 %. IMPRESSION: No scintigraphic evidence for reversible ischemia
--- NOTE | 2024-02-11 07:29 | CA ---
Transthoracic Echo Report Name: Morro Ruiz Age: 63 Gender: M : 1960 Exam Date: 02/10/2024 08:39 Exam Location: [facility] Ht (in): 68 Wt (lb): 205 Ordering Physician: Micheal Yusuf DO Attending/Referring Phys: Micheal Yusuf DO Olericulture Professor Binta Velazquez RDCS Procedure CPT: Indications: R94.31 ABNORMAL EKG Cardiac Hx: Technical Quality: Fair Contrast 1: Total Dose (mL): Contrast 2: Total Dose (mL): MEASUREMENTS (Male / Female) Normal Values 2D ECHO LV Diastolic Diameter PLAX 5.3 cm 4.2 - 5.9 / 3.9 - 5.3 cm LV Systolic Diameter PLAX 3.4 cm IVS Diastolic Thickness 1.1 cm 0.6 - 1.0 / 0.6 - 0.9 cm LVPW Diastolic Thickness 1.2 cm 0.6 - 1.0 / 0.6 - 0.9 cm LV Relative Wall Thickness 0.4 RV Internal Dim ED PLAX 3.6 cm LA Volume 66.0 cm??? 18 - 58 / 22 - 52 cm??? LA Volume Index 30.8 cm???/m??? 16 - 28 cm???/m??? M-MODE Aortic Root Diameter MM 3.2 cm LA Systolic Diameter MM 4.2 cm LA Ao Ratio MM 1.3 AV Cusp Separation MM 2.0 cm DOPPLER AV Peak Velocity 144.0 cm/s AV Peak Gradient 8.3 mmHg AV Mean Velocity 103.3 cm/s AV Mean Gradient 4.6 mmHg AV Velocity Time Integral 30.7 cm LVOT Peak Velocity 112.4 cm/s LVOT Peak Gradient 5.1 mmHg LVOT Velocity Time Integral 24.1 cm MV Area PHT 3.3 cm??? Mitral E Point Velocity 109.1 cm/s Mitral A Point Velocity 69.1 cm/s Mitral E to A Ratio 1.6 MV Deceleration Time 228.9 ms MV E' Velocity 11.1 cm/s Mitral E to MV E' Ratio 9.8 TR Peak Velocity 221.6 cm/s TR Peak Gradient 19.6 mmHg Right Ventricular Systolic Press 24.6 mmHg FINDINGS Left Ventricle Mildly increased left ventricular wall thickness. Left ventricular cavity size normal. Normal left ventricular systolic function with no obvious regional wall motion abnormalities. Left ventricular ejection fraction is estimated at 55-60 %. Grade 1 diastolic dysfunction. Right Ventricle Mild right ventricular dilatation. Right ventricular systolic pressure within normal limits. Right Atrium Normal right atrial size. Left Atrium Mildly increased left atrial volume. Mitral Valve Structurally normal mitral valve. Mild mitral annular calcification. Moderate mitral regurgitation. Aortic Valve Trileaflet aortic valve. No aortic valve stenosis or regurgitation. Tricuspid Valve Structurally normal tricuspid valve. Mild tricuspid regurgitation. Pulmonic Valve Structurally normal pulmonic valve. Pericardium No pericardial effusion. Aorta Normal size aortic root and proximal ascending aorta. CONCLUSIONS Patient preserved systolic function Mild RV enlargement Previewed by: Dr. Severiano Montgomery MD (Electronically Signed) Final Date: 11 February 2024 07:28
--- NOTE | 2024-02-11 11:05 | CA ---
Exercise Stress Test Report Name: Morro Ruiz Exam Date: 02/10/2024 11:24 Exam Location: [place] Stress Ht (in): 68 Wt (lb): 205 BSA: 2.07 Ordering Phys: Micheal Yusuf DO Referring Phys: Micheal Yusuf DO Technologist: JACKI MCADAMS Age: 63 Gender: M : 1960 Procedure CPT: Indications: R94.31 ABNORMAL EKG ICD-10 Codes: Patient History: DIFFICULTY IN BREATHING, HTN, Medications: LOSARTAN, LEVOTHYROXINE Meds past 24 hrs: Pretest Chest Pain: STRESS TEST Stanislaw Protocol Exercise Duration (min:sec): 08:[address] Depressions (mm): Angina Score: Burciaga Score: Resting HR (bpm): 58 Peak HR (bpm): 135 Resting BP (mmHg): 142 / 84 Peak BP (mmHg): 218 / 75 MPHR: 158 Target HR: 134 % MPHR: 85 METS: 10.3 Total Dose: Peak Dose: Atropine: Double Product: 67901 BP Response: Stress Termination: MAX EXERTION/TARGET HR Stress Symptoms: NO SYMPTOMS Stress Summary: ECG ANALYSIS Resting ECG: Stress ECG: CONCLUSIONS Exercise stress test Baseline heart rate 53 beats a minute, Baseline blood pressure 142/84 mmHg be sent for EKG shows sinus rhythm with normal ST segments Patient exercised on a Stanislaw protocol for atrial flutter half minutes. Hypertensive response to exercise with a peak blood pressure 218/75 mmHg Peak heart rate 134 beats a minute Patient achieved 10.3 METs of workload No procedures for ischemia No arrhythmias Dr. Severiano Montgomery MD (Electronically Signed) Final Date: 11 February 2024 11:04
== END | disposition home or self-care (01) ==
LOC: RADNMMAIN 08:18
PROVIDERS: ATTEND Family Medicine
DX: I11.9 Hypertensive heart disease without heart failure (principal); R94.31 Abnormal electrocardiogram [ECG] [EKG]; R06.09 Other forms of dyspnea
CPT/HCPCS: 93017; 93306; 78452; A9500